=== PATIENT | female | born 1980 | race Caucasian/White ===

== ENCOUNTER 2017-07-23 15:29 | Emergency (ER) | payer SELFPAY ==
[2017-07-23 16:29] LABS: URINE HCG POC HCG NEGATIVE (Negative)
[2017-07-23 16:51] LABS: ADD MAN DIFF? NO
[2017-07-23 17:00] LABS: BASO # 0.1 x10^3/uL (0.0-0.2); BASO % 1 % (0-3); EOS # 0.3 x10^3/uL (0.0-0.7); EOS % 3 % (0-3); HEMATOCRIT 43.4 % (36.0-47.0); HEMOGLOBIN 14.2 g/dL (12.0-15.5); LYMPH # 2.4 x10^3/uL (1.0-4.8); LYMPH % 25 % (24-48); MEAN CORPUSCULAR HEMOGLOBIN 30 pg (25-35); MEAN CORPUSCULAR HGB CONC 33 g/dL (31-37); MEAN CORPUSCULAR VOLUME 90 fL (79-100); MONO # 1.4 x10^3/uL (0.0-1.1); MONO % 14 % (0-9); NEUT # 5.6 x10^3uL (1.8-7.7); NEUT % 57 % (31-73); PLATELET COUNT 407 x10^3/uL (140-400); RED BLOOD COUNT 4.81 x10^6/uL (3.50-5.40); RED CELL DISTRIBUTION WIDTH 13.7 % (11.5-14.5); WHITE BLOOD COUNT 9.8 x10^3/uL (4.0-11.0)
[2017-07-23 17:09] LABS: ANION GAP 13 (6-14); BLOOD UREA NITROGEN 8 mg/dL (7-20); BUN/CREATININE RATIO 11 (6-20); CARBON DIOXIDE 26 mmol/L (21-32); CHLORIDE 100 mmol/L (98-107); CREATININE 0.7 mg/dL (0.6-1.0); GFR 94.7; GLUCOSE 94 mg/dL (70-99); POTASSIUM 3.6 mmol/L (3.5-5.1); SODIUM 139 mmol/L (136-145)
[2017-07-23] MEDS: ONDANSETRON PF 4 MG/2 ML VIAL. IV (17:10)
[2017-07-23 17:13] LABS: ALK PHOS 61 U/L (46-116); ALT (SGPT) 20 U/L (14-59); AST (SGOT) 19 U/L (15-37); LIPASE 59 U/L (73-393); TOTAL BILIRUBIN 0.3 mg/dL (0.2-1.0); TOTAL PROTEIN 8.2 g/dL (6.4-8.2)
[2017-07-23] MEDS: IV NORMAL SALINE 1000ML BAG 1,000 ML IV (17:14)
[2017-07-23] MEDS ORDERED: CONTRAST GIVEN MC (17:15)
[2017-07-23] MEDS: IOHEXOL 300 MG/ML 100ML VIAL. IV (17:15)
[2017-07-23] MEDS: FAMOTIDINE 20 MG/2 ML VIAL IVP (17:16)
[2017-07-23] MEDS: fentaNYL PF VIAL 100 MCG/2 ML VIAL IV (17:16)
[2017-07-23 17:18] LABS: BILIRUBIN,URINE NEGATIVE (NEG); CLARITY,URINE TURBID; COLOR,URINE YELLOW; GLUCOSE,URINE NEGATIVE (NEG); NITRITE,URINE NEGATIVE (NEG); PROTEIN,URINE 30 mg/dL (NEG-TRACE); UROBILINOGEN,URINE 0.2 mg/dL (0.2 mg/dL)
[2017-07-23 17:33] LABS: BACTERIA,URINE MODERATE /HPF (0-FEW); SQUAMOUS EPITHELIAL CELL,UR MANY /LPF
[2017-07-23] MEDS: HYDROcodone/APAP 5/325MG 1 TAB TABLET PO (20:12)
[2017-07-23] MEDS: metroNIDAZOLE 500 MG TABLET PO (20:13)
[2017-07-23] MEDS: SMZ/TMP 800/160MG TABLET. PO (20:13)
== END 2017-07-23 20:25 | disposition home or self-care (01) ==
LOC: ER 15:29
DX: K52.9 Noninfective gastroenteritis and colitis, unspecified (principal)
CPT/HCPCS: 36415; 74177; 80053; 81001; 81025; 83690; 85025; 87045; 87086; 87205; 96361; 96374; 96375; 99285-25; J2405; J3010; J7030; Q9967; S0028

== ENCOUNTER 2020-10-12 15:36 | Inpatient (IN) | payer OTHER ==
[~2020-10-12] VITALS: Ht 154.9 cm; Wt 66.0 kg
[~2020-10-12 15:36] MED LIST: CETI10TA74 PO; CIPR500T94 PO; HYDR-3164 PO; IBUP-1027 PO; L. R1CAP2 PO; METR500T PO; OXYC1TAB15 PO; SULF1TAB24 PO
[2020-10-12 16:31] LABS: BASO % 0 % (0-3); EOS % 0 % (0-3); LYMPH # 0.8 x10^3/uL (1.0-4.8); LYMPH % 10 % (24-48); MEAN CORPUSCULAR HEMOGLOBIN 31 pg (25-35); MEAN CORPUSCULAR HGB CONC 34 g/dL (31-37); MEAN CORPUSCULAR VOLUME 91 fL (79-100); MONO # 0.6 x10^3/uL (0.0-1.1); MONO % 8 % (0-9); NEUT # 6.2 x10^3/uL (1.8-7.7); NEUT % 81 % (31-73); PLATELET COUNT 236 x10^3/uL (140-400); RED BLOOD COUNT 4.49 x10^6/uL (3.50-5.40); RED CELL DISTRIBUTION WIDTH 13.8 % (11.5-14.5); WHITE BLOOD COUNT 7.7 x10^3/uL (4.0-11.0)
[2020-10-12 16:34] LABS: BILIRUBIN,URINE NEGATIVE (NEG); CLARITY,URINE CLEAR; COLOR,URINE YELLOW; NITRITE,URINE NEGATIVE (NEG); PROTEIN,URINE NEGATIVE (NEG-TRACE); UROBILINOGEN,URINE 0.2 mg/dL (0.2 mg/dL)
[2020-10-12 16:38] LABS: CALCIUM 8.2 mg/dL (8.5-10.1); CREATININE 0.8 mg/dL (0.6-1.0); GFR 79.9; POTASSIUM 3.4 mmol/L (3.5-5.1)
[2020-10-12 16:41] LABS: RBC,URINE >40 /HPF (0-2)
[2020-10-12 16:42] LABS: BACTERIA,URINE FEW /HPF (0-FEW)
[2020-10-12] MEDS ORDERED: ONDANSETRON PF 4 MG/2 ML VIAL. IV ONE (16:45)
[2020-10-12] MEDS ORDERED: fentaNYL PF VIAL 100 MCG/2 ML VIAL IV ONE ×2 (16:45→20:15)
[2020-10-12] MEDS ORDERED: FAMOTIDINE 20 MG/2 ML VIAL IVP ONE (16:45)
[2020-10-12] MEDS ORDERED: IV NORMAL SALINE 1000ML BAG 1,000 ML IV ONE (16:45)
[2020-10-12 16:48] LABS: ALBUMIN 4.2 g/dL (3.4-5.0); ALBUMIN/GLOBULIN RATIO 1.1 (1.0-1.7); TOTAL BILIRUBIN 0.3 mg/dL (0.2-1.0)
[2020-10-12] MEDS ORDERED: CONTRAST GIVEN. MC PRN (17:45)
[2020-10-12] MEDS ORDERED: IOHEXOL 300 MG/ML 100ML VIAL. IV ONE (18:00)
--- NOTE | 2020-10-12 18:26 | RAD ---
Examination: CT of the abdomen pelvis with IV contrast HISTORY: History of nausea and vomiting, diarrhea COMPARISON: 08/17/2019 TECHNIQUE: Axial CT images of the abdomen is performed with IV contrast: Coronary sagittal reformats are performed. Exposure: One or more of the following individualized dose reduction techniques were utilized for thi s examination: 1. Automated exposure control 2. Adjustment of the mA and/or kV according to patient size 3. Use of iterative reconstruction technique FINDINGS: Partially visualized focal groundglass consolidation or infiltrates identified in the right middle lo be and in the bibasilar lungs. No evidence of free air identified in the abdomen. The liver demonstrates a focal fat in the left lob e otherwise unremarkable. The spleen, adrenals grossly appears unremarkable. The gallbladder is mildl y distended. The stomach is mildly distended with visualized pancreas grossly appears unremarkable. T he small bowel is nondilated. Diffuse moderate thickened appearance of the wall of the colon througho ut with surrounding inflammatory fat stranding. The bilateral kidneys enhance symmetrically. Urinary bladder is mildly distended No evidence of lytic bony destructive lesion. IMPRESSION: 1. Diffuse moderate thickened appearance of the wall of the colon throughout with surrounding inflam matory fat stranding likely diffuse colitis. 2. Partially visualized focal groundglass consolidation or infiltrates identified in the right middl e lobe and in the bibasilar lungs could be multifocal pneumonia, atypical/viral/ covid pneumonia. Cor relate with lab values. Electronically signed by: Sriram Cooper MD (10/12/2020 6:24 PM) [id number]
--- NOTE | 2020-10-12 19:02 | ED.ADGEN ---
Past Medical History Past Medical History: Other Additional Past Medical Histor: COLITIS Past Surgical History: No Surgical History Smoking Status: Former Smoker Alcohol Use: Occasionally Drug Use: None General Adult EDM: Chief Complaint: NAUSEA/VOMITING/DIARRHEA HPI: HPI: Patient is a 40 year old female, accompanied by her sister, who presents emergency department with complaints of having diarrhea for the last 6 days. Patient reports that she has had at least 25 episodes of diarrhea in the last 24 hours. She denies any blood in her stools but states that her stool is bright green color. Patient also complains of nausea and vomiting. She states she has had 2 episodes of vomiting today. Patient reports that she has not been able to eat or drink anything in the last 4 days and she has not been able to sleep in the last 3 days. Patient states she also has noticed decreased sense of taste and smell. She denies any fever, cough, sore throat, chest pain, palpitations, dysuria, hematuria, increased urinary frequency, difficulty voiding, headache, numbness, tingling, or weakness. She denies any known exposure to anyone with COVID-19. Patient has not been immunized against Covid 19. She currently rates her pain a 9 out of 10 on the pain scale and states it is in her low back and lower abdomen it feels like a cramping sensation. She denies any alleviating factors the pain is worse with palpation and movement. Review of Systems: Review of Systems: Complete ROS is negative unless otherwise noted in HPI. Current Medications: Current Medications Medications (Trade) Dose Ordered Sig/[facility] Start Time Stop Time Status Last Admin Dose Admin Famotidine (Pepcid Vial) 20 mg 1X ONCE 10/12/20 16:45 10/12/20 16:46 DC 10/12/20 17:12 20 MG Fentanyl Citrate (Fentanyl 2ml Vial) 50 mcg 1X ONCE 10/12/20 16:45 10/12/20 16:46 DC 10/12/20 17:12 50 MCG Info (CONTRAST GIVEN -- Rx MONITORING) 1 each PRN DAILY PRN 10/12/20 17:45 10/14/20 17:44 Iohexol (Omnipaque 300 Mg/ml) 74 ml 1X ONCE 10/12/20 18:00 10/12/20 18:01 DC 10/12/20 17:52 74 ML Ondansetron HCl (Zofran) 4 mg 1X ONCE 10/12/20 16:45 10/12/20 16:46 DC 10/12/20 17:12 4 MG Sodium Chloride 1,000 ml @ 1,000 mls/hr 1X ONCE 10/12/20 16:45 10/12/20 17:44 DC 10/12/20 17:11 1,000 MLS/HR Allergies: Allergies: Allergies Coded Allergies Type Severity Reaction Last Updated Verified No Known Drug Allergies 10/12/20 No Physical Exam: PE: See Above Constitutional: Well developed, well nourished, no acute distress, ill appearance. [] HENT: Normocephalic, atraumatic, bilateral external ears normal, nose normal, dry mucous membrane. [] Eyes: PERRLA, EOMI, conjunctiva normal, no discharge. [] Neck: Normal range of motion, no stridor. [] Cardiovascular:Heart rate regular rhythm Lungs & Thorax: Respirations even and unlabored, no retractions, no respiratory distress, lungs CTA Abdomen: soft, diffuse tenderness to palpation, no rebound tenderness, no guarding, no palpable mass Skin: Warm, dry, no erythema, no rash. [] Extremities: No cyanosis, ROM intact, no edema. [] Neurologic: Alert and oriented X 3, normal motor, normal sensory, no focal deficits noted. [] Psychologic: Affect normal, judgement normal, mood normal. [] Current Patient Data: Labs: Laboratory Tests Test 10/12/20 15:52 10/12/20 16:20 POC Urine HCG, Qualitative Hcg negative (Negative) White Blood Count 7.7 x10^3/uL (4.0-11.0) Red Blood Count 4.49 x10^6/uL (3.50-5.40) Hemoglobin 14.0 g/dL (12.0-15.5) Hematocrit 41.0 % (36.0-47.0) Mean Corpuscular Volume 91 fL (79-100) Mean Corpuscular Hemoglobin 31 pg (25-35) Mean Corpuscular Hemoglobin Concent 34 g/dL (31-37) Red Cell Distribution Width 13.8 % (11.5-14.5) Platelet Count 236 x10^3/uL (140-400) Neutrophils (%) (Auto) 81 % (31-73) H Lymphocytes (%) (Auto) 10 % (24-48) L Monocytes (%) (Auto) 8 % (0-9) Eosinophils (%) (Auto) 0 % (0-3) Basophils (%) (Auto) 0 % (0-3) Neutrophils # (Auto) 6.2 x10^3/uL (1.8-7.7) Lymphocytes # (Auto) 0.8 x10^3/uL (1.0-4.8) L Monocytes # (Auto) 0.6 x10^3/uL (0.0-1.1) Eosinophils # (Auto) 0.0 x10^3/uL (0.0-0.7) Basophils # (Auto) 0.0 x10^3/uL (0.0-0.2) Urine Collection Type Void Urine Color Yellow Urine Clarity Clear Urine pH 6.0 (<5.0-8.0) Urine Specific [place] 1.025 (1.000-1.030) Urine Protein Negative mg/dL (NEG-TRACE) Urine Glucose (UA) Negative mg/dL (NEG) Urine Ketones (Stick) >=80 mg/dL (NEG) Urine Blood Large (NEG) Urine Nitrite Negative (NEG) Urine Bilirubin Negative (NEG) Urine Urobilinogen Dipstick 0.2 mg/dL (0.2 mg/dL) Urine Leukocyte Esterase Trace (NEG) Urine RBC >40 /HPF (0-2) Urine WBC 1-4 /HPF (0-4) Urine Squamous Epithelial Cells Mod /LPF Urine Bacteria Few /HPF (0-FEW) Urine Mucus Slight /LPF Sodium Level 138 mmol/L (136-145) Potassium Level 3.4 mmol/L (3.5-5.1) L Chloride Level 101 mmol/L (98-107) Carbon Dioxide Level 19 mmol/L (21-32) L Anion Gap 18 (6-14) H Blood Urea Nitrogen 7 mg/dL (7-20) Creatinine 0.8 mg/dL (0.6-1.0) Estimated GFR (Cockcroft-Gault) 79.9 BUN/Creatinine Ratio 9 (6-20) Glucose Level 81 mg/dL (70-99) Calcium Level 8.2 mg/dL (8.5-10.1) L Magnesium Level 2.0 mg/dL (1.8-2.4) Total Bilirubin 0.3 mg/dL (0.2-1.0) Aspartate Amino Transferase (AST) 64 U/L (15-37) H Alanine Aminotransferase (ALT) 55 U/L (14-59) Alkaline Phosphatase 57 U/L (46-116) Total Protein 8.0 g/dL (6.4-8.2) Albumin 4.2 g/dL (3.4-5.0) Albumin/Globulin Ratio 1.1 (1.0-1.7) Lipase 63 U/L (73-393) L Laboratory Tests 10/12/20 16:20 Laboratory Tests 10/12/20 16:20 Vital Signs: Vital Signs Date Time Temp Pulse Resp B/P (MAP) Pulse Ox O2 Delivery O2 Flow Rate FiO2 10/12/20 18:39 89 19 149/81 (103) 97 Room Air 10/12/20 15:42 98.9 98.9 EKG: EKG: [] Heart Score: C/O Chest Pain: No Risk Scores: Score 0 - 3: 2.5% MACE over next 6 weeks - Discharge Home Score 4 - 6: 20.3% MACE over next 6 weeks - Admit for Clinical Observation Score 7 - 10: 72.7% MACE over next 6 weeks - Early Invasive Strategies Radiology/Procedures: Radiology/Procedures: PROCEDURE: CT ABD PELV W/ IV CONTRST ONLY Examination: CT of the abdomen pelvis with IV contrast HISTORY: History of nausea and vomiting, diarrhea COMPARISON: 08/17/2019 TECHNIQUE: Axial CT images of the abdomen is performed with IV contrast: Coronary sagittal reformats are performed. Exposure: One or more of the following individualized dose reduction techniques were utilized for this examination: 1. Automated exposure control 2. Adjustment of the mA and/or kV according to patient size 3. Use of iterative reconstruction technique FINDINGS: Partially visualized focal groundglass consolidation or infiltrates identified in the right middle lobe and in the bibasilar lungs. No evidence of free air identified in the abdomen. The liver demonstrates a focal fat in the left lobe otherwise unremarkable. The spleen, adrenals grossly appears unremarkable. The gallbladder is mildly distended. The stomach is mildly distended with visualized pancreas grossly appears unremarkable. The small bowel is nondilated. Diffuse moderate thickened appearance of the wall of the colon throughout with surrounding inflammatory fat stranding. The bilateral kidneys enhance symmetrically. Urinary bladder is mildly distended No evidence of lytic bony destructive lesion. IMPRESSION: 1. Diffuse moderate thickened appearance of the wall of the colon throughout with surrounding inflammatory fat stranding likely diffuse colitis. 2. Partially visualized focal groundglass consolidation or infiltrates identified in the right middle lobe and in the bibasilar lungs could be multifocal pneumonia, atypical/viral/ covid pneumonia. Correlate with lab values. Electronically signed by: Sriram Cooper MD (10/12/2020 6:24 PM) [id number][] Course & Med Decision Making: Course & Med Decision Making Pertinent Labs and Imaging studies reviewed. (See chart for details) 0-spoke with Dr. Lora who is the admitting physician, and care was assumed foll owing discussion of patient. Will admit patient for PUI, colitis, dehydration, pneumonia, and nausea/vomiting/diarrhea Patient's vital signs stable. Patient remains afebrile, appears nontoxic, respir ations even and unlabored. Patient will be admitted to the medical/surgical floor. Patient's case and plan of care also discussed with Dr. Light [] Kelsey Disclaimer: Kelsey Disclaimer: This electronic medical record was generated, in whole or in part, using a voice recognition dictation system. Departure Departure Impression: Primary Impression: Person under investigation for COVID-19 Additional Impressions: Pneumonia Colitis Dehydration Nausea, vomiting, and diarrhea Disposition: ADMITTED INPATIENT Admitting Physician: REMEDIOS (NORMAN) Condition: STABLE Referrals: NO PCP (PCP) COVID-19 Assessment: COVID-19 Patient Risks: Age 65 or older: No Sign of co-morbidity: No Exp to person + for COVID: No Exp to PUI: No Travel from affected area: No Lower respiratory symptoms: No Fever: No Other: Yes (N/V/D, DECREASED TASTE/SMELL) PPE Use: Full PPE with N95 mask or PAPR: Yes Problem Qualifiers Additional Impressions: Pneumonia Pneumonia type: due to unspecified organism Laterality: bilateral Lung location: unspecified part of lung Qualified Codes: J18.9 - Pneumonia, unspecified organism SADIE CONNER SURFACER Oct 12, 2020 19:02
--- NOTE | 2020-10-12 19:42 | PDOC1 ---
History and Physical Date of Service: DOS: DATE: 10/12/20 TIME: 19:27 Chief Complaint: Chief Complain: Nausea vomiting History of Present Illness: HPI: 40-year-old female with past medical history of colitis admitted in [address] Mcmahan her GI service. At that time she was dismissed with Flagyl and improved with symptoms. She comes today due to worsening diarrhea and nausea vomiting. She started out with diarrhea 3 days ago and then a day later she had a intractable nausea vomiting. Today she has had about 20 episodes of volume is green watery diarrhea. She also has have diffuse abdominal pain. She only has nausea and has vomited only twice. Denies any hematemesis or coffee- ground emesis. She denies any recent antibiotic use or travel or exotic culinary experiences. Of note, patient states that 1 year ago she did follow with Dr. Garrett as outpatient and a colonoscopy was done which only showed colitis. She is unsure if a biopsy was done or if there was any pathology report. Past Medical/Surgical History: PMH/PSH: Past Medical History: COLITIS Past Surgical History: No Surgical History Allergies: Allergies: Coded Allergies: No Known Drug Allergies (Unverified , 10/12/20) Family History: Family History: Reviewed with no relevant findings Social History: Social History: Smoking Status: Former Smoker Alcohol Use: Occasionally Drug Use: None Current Medications: Current Medications Current Medications Sodium Chloride 1,000 ml @ 1,000 mls/hr 1X ONCE IV Last administered on 10/12/20at 17:11; Start 10/12/20 at 16:45; Stop 10/12/20 at 17:44; Status DC Ondansetron HCl (Zofran) 4 mg 1X ONCE IV Last administered on 10/12/20at 17:12; Start 10/12/20 at 16:45; Stop 10/12/20 at 16:46; Status DC Famotidine (Pepcid Vial) 20 mg 1X ONCE IVP Last administered on 10/12/20at 17:12; Start 10/12/20 at 16:45; Stop 10/12/20 at 16:46; Status DC Fentanyl Citrate (Fentanyl 2ml Vial) 50 mcg 1X ONCE IV Last administered on 10/12/20at 17:12; Start 10/12/20 at 16:45; Stop 10/12/20 at 16:46; Status DC Iohexol (Omnipaque 300 Mg/ml) 74 ml 1X ONCE IV Last administered on 10/12/20at 17:52; Start 10/12/20 at 18:00; Stop 10/12/20 at 18:01; Status DC Info (CONTRAST GIVEN -- Rx MONITORING) 1 each PRN DAILY PRN MC SEE COMMENTS; Start 10/12/20 at 17:45; Stop 10/14/20 at 17:44 Sodium Chloride 1,000 ml @ 100 mls/hr Q10H IV ; Start 10/12/20 at 19:30; Stop 10/13/20 at 19:29 Active Scripts Active Percocet 5-325 Mg Tablet (Oxycodone/Acetaminophen) 1 Each Tablet 1 Tab PO QID PRN Flagyl (Metronidazole) 500 Mg Tablet 500 Mg PO TID Cipro (Ciprofloxacin Hcl) 500 Mg Tablet 1 Tab PO BID Reported Ibuprofen 400 Mg Tablet 400 Mg PO PRN Q6HRS PRN Zyrtec (Cetirizine Hcl) 10 Mg Tablet 1 Tab PO DAILY Culturelle Capsule (L. Rhamnosus GG/Inulin) 1 Each Cap.sprink 1 Each PO DAILY ROS: Review of Systems Review of System REVIEW OF SYSTEMS: GENERAL: Denies weakness SKIN: No bruising, hair changes or rashes. EYES: No blurred, double or loss of vision. NOSE AND THROAT: No history of nosebleeds, hoarseness or sore throat. HEART: No history of palpitations, chest pain or shortness of breath on exertion. LUNGS: Denies cough, hemoptysis, wheezing or shortness of breath. GASTROINTESTINAL: Denies changes in appetite, nausea, vomiting, diarrhea or constipation. GENITOURINARY: No history of frequency, urgency, hesitancy or nocturia. NEUROLOGIC: Denies history of numbness, tingling, or tremor. PSYCHIATRIC: No history of panic, anxiety or depression. ENDOCRINE: No history of heat or cold intolerance, polyuria or polydipsia. EXTREMITIES: Denies joint pain, pain on walking or stiffness. Physical Exam: Vital Signs: Vital Signs Date Time Temp Pulse Resp B/P (MAP) Pulse Ox O2 Delivery O2 Flow Rate FiO2 10/12/20 18:39 89 19 149/81 (103) 97 Room Air 10/12/20 15:42 98.9 98.9 Physcial Exam: GEN: No apparent distress. Alert and oriented HEENT: Normal cephalic, atraumatic, external auditory canals are patent EYES: Extraocular muscles are intact, pupil are equally round and reactive to light and accommodation MUSCULOSKELETAL: Well developed , well nourished, good range of motion ENDOCRINE: No thyromegaly was palpated LYMPHATICS: No cervical chain or axillary nodes were noted HEMATOPOIETIC: No bruising NECK: Supple, no JVD, no thyromegaly was noted LUNGS: Clear to auscultation in all lung park without rhonchi or wheezing HEART: RRR, S!, S2 present. Peripheral pulses intact, no obvious murmurs noted ABDOMEN: Soft, diffuse abdominal tenderness positive bowel sounds, no organomegaly, normal bowel sounds EXTREMITIES: Without clubbing, cyanosis, or edema. Pedal pulses intact. Negative Homans sign NEUROLOGIC: Normal speech and tone. A&O x 3, moves all extremities, no obvious focal deficits PSYCHIATRIC: Normal affect, normal mood. Stable SKIN: No ulcerations or rashes, good skin turgor, no jaundice VASCULAR: Good capillary refill, neurovascular bundle appears to be intact Labs: Labs: Laboratory Tests Test 10/12/20 15:52 10/12/20 16:20 Bedside Urine HCG, Qualitative Hcg negative (Negative) White Blood Count 7.7 x10^3/uL (4.0-11.0) Red Blood Count 4.49 x10^6/uL (3.50-5.40) Hemoglobin 14.0 g/dL (12.0-15.5) Hematocrit 41.0 % (36.0-47.0) Mean Corpuscular Volume 91 fL (79-100) Mean Corpuscular Hemoglobin 31 pg (25-35) Mean Corpuscular Hemoglobin Concent 34 g/dL (31-37) Red Cell Distribution Width 13.8 % (11.5-14.5) Platelet Count 236 x10^3/uL (140-400) Neutrophils (%) (Auto) 81 % (31-73) Lymphocytes (%) (Auto) 10 % (24-48) Monocytes (%) (Auto) 8 % (0-9) Eosinophils (%) (Auto) 0 % (0-3) Basophils (%) (Auto) 0 % (0-3) Neutrophils # (Auto) 6.2 x10^3/uL (1.8-7.7) Lymphocytes # (Auto) 0.8 x10^3/uL (1.0-4.8) Monocytes # (Auto) 0.6 x10^3/uL (0.0-1.1) Eosinophils # (Auto) 0.0 x10^3/uL (0.0-0.7) Basophils # (Auto) 0.0 x10^3/uL (0.0-0.2) Urine Collection Type Void Urine Color Yellow Urine Clarity Clear Urine pH 6.0 (<5.0-8.0) Urine Specific [place] 1.025 (1.000-1.030) Urine Protein Negative mg/dL (NEG-TRACE) Urine Glucose (UA) Negative mg/dL (NEG) Urine Ketones (Stick) >=80 mg/dL (NEG) Urine Blood Large (NEG) Urine Nitrite Negative (NEG) Urine Bilirubin Negative (NEG) Urine Urobilinogen Dipstick 0.2 mg/dL (0.2 mg/dL) Urine Leukocyte Esterase Trace (NEG) Urine RBC >40 /HPF (0-2) Urine WBC 1-4 /HPF (0-4) Urine Squamous Epithelial Cells Mod /LPF Urine Bacteria Few /HPF (0-FEW) Urine Mucus Slight /LPF Sodium Level 138 mmol/L (136-145) Potassium Level 3.4 mmol/L (3.5-5.1) Chloride Level 101 mmol/L (98-107) Carbon Dioxide Level 19 mmol/L (21-32) Anion Gap 18 (6-14) Blood Urea Nitrogen 7 mg/dL (7-20) Creatinine 0.8 mg/dL (0.6-1.0) Estimated GFR (Cockcroft-Gault) 79.9 BUN/Creatinine Ratio 9 (6-20) Glucose Level 81 mg/dL (70-99) Calcium Level 8.2 mg/dL (8.5-10.1) Magnesium Level 2.0 mg/dL (1.8-2.4) Total Bilirubin 0.3 mg/dL (0.2-1.0) Aspartate Amino Transf (AST/SGOT) 64 U/L (15-37) Alanine Aminotransferase (ALT/SGPT) 55 U/L (14-59) Alkaline Phosphatase 57 U/L (46-116) Total Protein 8.0 g/dL (6.4-8.2) Albumin 4.2 g/dL (3.4-5.0) Albumin/Globulin Ratio 1.1 (1.0-1.7) Lipase 63 U/L (73-393) Laboratory Tests Test 10/12/20 15:52 10/12/20 16:20 Bedside Urine HCG, Qualitative Hcg negative (Negative) White Blood Count 7.7 x10^3/uL (4.0-11.0) Red Blood Count 4.49 x10^6/uL (3.50-5.40) Hemoglobin 14.0 g/dL (12.0-15.5) Hematocrit 41.0 % (36.0-47.0) Mean Corpuscular Volume 91 fL (79-100) Mean Corpuscular Hemoglobin 31 pg (25-35) Mean Corpuscular Hemoglobin Concent 34 g/dL (31-37) Red Cell Distribution Width 13.8 % (11.5-14.5) Platelet Count 236 x10^3/uL (140-400) Neutrophils (%) (Auto) 81 % (31-73) Lymphocytes (%) (Auto) 10 % (24-48) Monocytes (%) (Auto) 8 % (0-9) Eosinophils (%) (Auto) 0 % (0-3) Basophils (%) (Auto) 0 % (0-3) Neutrophils # (Auto) 6.2 x10^3/uL (1.8-7.7) Lymphocytes # (Auto) 0.8 x10^3/uL (1.0-4.8) Monocytes # (Auto) 0.6 x10^3/uL (0.0-1.1) Eosinophils # (Auto) 0.0 x10^3/uL (0.0-0.7) Basophils # (Auto) 0.0 x10^3/uL (0.0-0.2) Urine Collection Type Void Urine Color Yellow Urine Clarity Clear Urine pH 6.0 (<5.0-8.0) Urine Specific [place] 1.025 (1.000-1.030) Urine Protein Negative mg/dL (NEG-TRACE) Urine Glucose (UA) Negative mg/dL (NEG) Urine Ketones (Stick) >=80 mg/dL (NEG) Urine Blood Large (NEG) Urine Nitrite Negative (NEG) Urine Bilirubin Negative (NEG) Urine Urobilinogen Dipstick 0.2 mg/dL (0.2 mg/dL) Urine Leukocyte Esterase Trace (NEG) Urine RBC >40 /HPF (0-2) Urine WBC 1-4 /HPF (0-4) Urine Squamous Epithelial Cells Mod /LPF Urine Bacteria Few /HPF (0-FEW) Urine Mucus Slight /LPF Sodium Level 138 mmol/L (136-145) Potassium Level 3.4 mmol/L (3.5-5.1) Chloride Level 101 mmol/L (98-107) Carbon Dioxide Level 19 mmol/L (21-32) Anion Gap 18 (6-14) Blood Urea Nitrogen 7 mg/dL (7-20) Creatinine 0.8 mg/dL (0.6-1.0) Estimated GFR (Cockcroft-Gault) 79.9 BUN/Creatinine Ratio 9 (6-20) Glucose Level 81 mg/dL (70-99) Calcium Level 8.2 mg/dL (8.5-10.1) Magnesium Level 2.0 mg/dL (1.8-2.4) Total Bilirubin 0.3 mg/dL (0.2-1.0) Aspartate Amino Transf (AST/SGOT) 64 U/L (15-37) Alanine Aminotransferase (ALT/SGPT) 55 U/L (14-59) Alkaline Phosphatase 57 U/L (46-116) Total Protein 8.0 g/dL (6.4-8.2) Albumin 4.2 g/dL (3.4-5.0) Albumin/Globulin Ratio 1.1 (1.0-1.7) Lipase 63 U/L (73-393) Images: Images CT ABD/PELVIS IMPRESSION: 1. Diffuse moderate thickened appearance of the wall of the colon throughout with surrounding inflammatory fat stranding likely diffuse colitis. 2. Partially visualized focal groundglass consolidation or infiltrates identified in the right middle lobe and in the bibasilar lungs could be multifocal pneumonia, atypical/viral/ covid pneumonia. Correlate with lab values. Assessment/Plan Assessment/Plan Intractable nausea vomiting Diffuse colitis, possible gram-negative organism, possible viral Investigation for COVID-19 infection Atypical pneumonia, possible viral Admit to medicine for further management Pending Covid test Pending chest x-ray Continue IV fluids Continue empiric IV antibiotics Pending stool studies Pending C. difficile studies Pending ESR Pending lactic acid GI consult IV MS antiemetics as needed We will try a trial of Bentyl Clear liquid diet and advance as tolerated We will try to avoid narcotics due to inflammation Lovenox for DVT prophylaxis Protonix GI prophylaxis ADA diet Full code Discussed with RN and SW Disposition patient management as above Surrogate decision maker is significant other Justifications for Admission Other Justification ANEGLIKA AUSTIN MD Oct 12, 2020 19:42
[2020-10-12] MEDS: IV NORMAL SALINE 1000ML BAG 1,000 ML IV SCH ×2 (19:54→21:00)
[2020-10-12] MEDS ORDERED: PROCHLORPERAZINE 10 MG/2 ML VIAL. IV ONE (20:15)
--- NOTE | 2020-10-12 20:45 | NUR ---
ADMISSION NOTE: Patient arrived to room 663. Bed low, locked, call light within reach. Patient requesting ice chips, NPO. Provided education. Patient verbalized understanding. No other complaints at this time. Green belongings bags present x2.
[2020-10-12] MEDS ORDERED: DOCUSATE SODIUM 100 MG CAPSULE. PO PRN (21:00)
[2020-10-12] MEDS ORDERED: SENNOSIDES 8.6 MG TABLET PO PRN (21:00)
[2020-10-12] MEDS ORDERED: DEXTROSE 50% 25 GM / 50ML DISP.SYRIN. IV PRN (21:00)
[2020-10-12] MEDS ORDERED: DICYCLOMINE 20 MG/2 ML VIAL. IM PRN (21:00)
[2020-10-12] MEDS: PIPERACILLIN/TAZOBACTAM 3.375 GM in IV NORMAL SALINE 50ML 50 ML IV SCH (21:48)
[2020-10-12] MEDS: ONDANSETRON PF 4 MG/2 ML VIAL. IVP PRN (22:22)
[2020-10-12 22:28] VITALS: BP 134/74
[2020-10-13 02:49] VITALS: BP 127/70
[2020-10-13] MEDS ORDERED: DIPH25TA24 PO (03:45)
[2020-10-13] MEDS: PIPERACILLIN/TAZOBACTAM 3.375 GM in IV NORMAL SALINE 50ML 50 ML IV SCH ×3 (06:23→18:15)
[2020-10-13] MEDS: IV NORMAL SALINE 1000ML BAG 1,000 ML IV SCH ×4 (06:24→18:14)
[2020-10-13] MEDS: DICYCLOMINE HCL 10 MG CAPSULE PO PRN ×2 (06:32→19:45)
[2020-10-13] MEDS: PROCHLORPERAZINE 10 MG/2 ML VIAL. IV PRN ×2 (06:32→15:39)
[2020-10-13 07:00] VITALS: BP 127/77
--- NOTE | 2020-10-13 07:26 | NUR ---
MD aware of consult, placing orders. Day shift RN notified.
--- NOTE | 2020-10-13 08:11 | RAD ---
EXAMINATION: Chest radiograph. VIEWS: Single AP view COMPARISON: 10/12/2020 INDICATION:40 years, Female, pneumonia. FINDINGS: Normal cardiomediastinal silhouette. Previously seen multifocal groundglass and consolidative opaciti es in bibasilar lungs are not appreciated on the current exam. No pleural effusion or pneumothorax. N o acute osseous process. IMPRESSION: Previously seen multifocal groundglass and consolidative opacities in bibasilar lungs are not appreci ated on the current exam. Electronically signed by: Sallie Chow MD (10/13/2020 8:09 AM) [id number]
[2020-10-13] MEDS: PANTOPRAZOLE 40 MG TABLET.DR. PO SCH (08:22)
[2020-10-13 08:59] LABS: BASO % 1 % (0-3); EOS % 1 % (0-3); HEMATOCRIT 37.2 % (36.0-47.0); HEMOGLOBIN 12.5 g/dL (12.0-15.5); LYMPH % 20 % (24-48); MEAN CORPUSCULAR HEMOGLOBIN 31 pg (25-35); MEAN CORPUSCULAR HGB CONC 34 g/dL (31-37); MEAN CORPUSCULAR VOLUME 91 fL (79-100); MONO # 0.7 x10^3/uL (0.0-1.1); MONO % 13 % (0-9); NEUT # 3.4 x10^3/uL (1.8-7.7); NEUT % 66 % (31-73); PLATELET COUNT 195 x10^3/uL (140-400); RED CELL DISTRIBUTION WIDTH 13.6 % (11.5-14.5); WHITE BLOOD COUNT 5.2 x10^3/uL (4.0-11.0)
[2020-10-13 09:14] LABS: CALCIUM 7.7 mg/dL (8.5-10.1); CREATININE 0.8 mg/dL (0.6-1.0); GFR 79.9; POTASSIUM 4.3 mmol/L (3.5-5.1)
--- NOTE | 2020-10-13 10:32 | NUR ---
SW following. Discussed with RN, pt from home with sister, room air, clear liquid diet, ambulatory, COVID-19 positive. GI following. RN advised no SW needs at this time. SW will continue to follow.
[2020-10-13 11:00] VITALS: BP 130/81
[2020-10-13] MEDS: ONDANSETRON PF 4 MG/2 ML VIAL. IVP PRN ×2 (11:31→19:46)
[2020-10-13] MEDS: HYDROcodone/APAP 5/325MG 1 TAB TABLET PO PRN ×3 (11:31→19:46)
--- NOTE | 2020-10-13 12:09 | PDOC ---
[employer] PROGRESS NOTE Date of Service DOS: DATE: 10/13/20 TIME: 12:07 Chief Complaint Chief Complaint COVID-19 positive (no pulmonary symptoms but she does have diarrhea) Intractable nausea vomiting Diffuse colitis, possible gram-negative organism, possible viral Investigation for COVID-19 infection Atypical pneumonia, possible viral History of Present Illness History of Present Illness 10/13/2020 Patient seen and examined Discussed with RN Discussed with case management I called GI nurse practitioner they are going to see the patient today Chart reviewed Patient complains of diarrhea Vitals/I&O Vitals/I&O: Vital Signs Date Time Temp Pulse Resp B/P (MAP) Pulse Ox O2 Delivery O2 Flow Rate FiO2 10/13/20 11:31 Room Air 10/13/20 11:00 98.7 86 18 130/81 (97) 97 98.7 I & O 10/12/20 10/12/20 10/13/20 15:00 23:00 07:00 Intake Total 1170 ml 1050 ml Balance 1170 ml 1050 ml Physical Exam General: Alert, Oriented X3 Heart: Regular rate Lungs: Wheezing Abdomen: Normal bowel sounds Extremities: No clubbing Skin: No rashes Labs Labs: Laboratory Tests Test 10/12/20 15:52 10/12/20 16:20 10/12/20 17:00 10/12/20 22:05 Bedside Urine HCG, Qualitative Hcg negative (Negative) White Blood Count 7.7 x10^3/uL (4.0-11.0) Red Blood Count 4.49 x10^6/uL (3.50-5.40) Hemoglobin 14.0 g/dL (12.0-15.5) Hematocrit 41.0 % (36.0-47.0) Mean Corpuscular Volume 91 fL (79-100) Mean Corpuscular Hemoglobin 31 pg (25-35) Mean Corpuscular Hemoglobin Concent 34 g/dL (31-37) Red Cell Distribution Width 13.8 % (11.5-14.5) Platelet Count 236 x10^3/uL (140-400) Neutrophils (%) (Auto) 81 % (31-73) Lymphocytes (%) (Auto) 10 % (24-48) Monocytes (%) (Auto) 8 % (0-9) Eosinophils (%) (Auto) 0 % (0-3) Basophils (%) (Auto) 0 % (0-3) Neutrophils # (Auto) 6.2 x10^3/uL (1.8-7.7) Lymphocytes # (Auto) 0.8 x10^3/uL (1.0-4.8) Monocytes # (Auto) 0.6 x10^3/uL (0.0-1.1) Eosinophils # (Auto) 0.0 x10^3/uL (0.0-0.7) Basophils # (Auto) 0.0 x10^3/uL (0.0-0.2) Urine Collection Type Void Urine Color Yellow Urine Clarity Clear Urine pH 6.0 (<5.0-8.0) Urine Specific [place] 1.025 (1.000-1.030) Urine Protein Negative mg/dL (NEG-TRACE) Urine Glucose (UA) Negative mg/dL (NEG) Urine Ketones (Stick) >=80 mg/dL (NEG) Urine Blood Large (NEG) Urine Nitrite Negative (NEG) Urine Bilirubin Negative (NEG) Urine Urobilinogen Dipstick 0.2 mg/dL (0.2 mg/dL) Urine Leukocyte Esterase Trace (NEG) Urine RBC >40 /HPF (0-2) Urine WBC 1-4 /HPF (0-4) Urine Squamous Epithelial Cells Mod /LPF Urine Bacteria Few /HPF (0-FEW) Urine Mucus Slight /LPF Sodium Level 138 mmol/L (136-145) Potassium Level 3.4 mmol/L (3.5-5.1) Chloride Level 101 mmol/L (98-107) Carbon Dioxide Level 19 mmol/L (21-32) Anion Gap 18 (6-14) Blood Urea Nitrogen 7 mg/dL (7-20) Creatinine 0.8 mg/dL (0.6-1.0) Estimated GFR (Cockcroft-Gault) 79.9 BUN/Creatinine Ratio 9 (6-20) Glucose Level 81 mg/dL (70-99) Calcium Level 8.2 mg/dL (8.5-10.1) Magnesium Level 2.0 mg/dL (1.8-2.4) Total Bilirubin 0.3 mg/dL (0.2-1.0) Aspartate Amino Transf (AST/SGOT) 64 U/L (15-37) Alanine Aminotransferase (ALT/SGPT) 55 U/L (14-59) Alkaline Phosphatase 57 U/L (46-116) Total Protein 8.0 g/dL (6.4-8.2) Albumin 4.2 g/dL (3.4-5.0) Albumin/Globulin Ratio 1.1 (1.0-1.7) Lipase 63 U/L (73-393) SARS-CoV-2 RNA (GWEN) Positive (Negative) Erythrocyte Sedimentation Rate 10 (0-25) Lactic Acid Level 0.7 mmol/L (0.4-2.0) Test 10/13/20 08:45 White Blood Count 5.2 x10^3/uL (4.0-11.0) Red Blood Count 4.10 x10^6/uL (3.50-5.40) Hemoglobin 12.5 g/dL (12.0-15.5) Hematocrit 37.2 % (36.0-47.0) Mean Corpuscular Volume 91 fL (79-100) Mean Corpuscular Hemoglobin 31 pg (25-35) Mean Corpuscular Hemoglobin Concent 34 g/dL (31-37) Red Cell Distribution Width 13.6 % (11.5-14.5) Platelet Count 195 x10^3/uL (140-400) Neutrophils (%) (Auto) 66 % (31-73) Lymphocytes (%) (Auto) 20 % (24-48) Monocytes (%) (Auto) 13 % (0-9) Eosinophils (%) (Auto) 1 % (0-3) Basophils (%) (Auto) 1 % (0-3) Neutrophils # (Auto) 3.4 x10^3/uL (1.8-7.7) Lymphocytes # (Auto) 1.0 x10^3/uL (1.0-4.8) Monocytes # (Auto) 0.7 x10^3/uL (0.0-1.1) Eosinophils # (Auto) 0.0 x10^3/uL (0.0-0.7) Basophils # (Auto) 0.0 x10^3/uL (0.0-0.2) Sodium Level 140 mmol/L (136-145) Potassium Level 4.3 mmol/L (3.5-5.1) Chloride Level 106 mmol/L (98-107) Carbon Dioxide Level 20 mmol/L (21-32) Anion Gap 14 (6-14) Blood Urea Nitrogen 5 mg/dL (7-20) Creatinine 0.8 mg/dL (0.6-1.0) Estimated GFR (Cockcroft-Gault) 79.9 Glucose Level 76 mg/dL (70-99) Calcium Level 7.7 mg/dL (8.5-10.1) Phosphorus Level 3.0 mg/dL (2.6-4.7) Magnesium Level 2.0 mg/dL (1.8-2.4) Assessment and Plan Assessmemt and Plan Problems Medical Problems: (1) Dehydration Status: Acute (2) Nausea, vomiting, and diarrhea Status: Acute (3) Person under investigation for COVID-19 Status: Acute (4) Pneumonia Status: Acut COVID-19 positive (no symptoms other than diarrhea) Intractable nausea vomiting Diffuse colitis, possible gram-negative organism, possible viral Investigation for COVID-19 infection Atypical pneumonia, possible viral Plan Await GI input Trend labs Home meds DVT prophylaxis Full code Empiric IV antibiotics IV fluids As needed Zofran Comment Review of Relevant I have reviewed the following items karen (where applicable) has been applied. Medications: Current Medications Medications (Trade) Dose Ordered Sig/Mor Route PRN Reason Start Time Stop Time Status Last Admin Dose Admin Sodium Chloride 1,000 ml @ 1,000 mls/hr 1X ONCE IV 10/12/20 16:45 10/12/20 17:44 DC 10/12/20 17:11 Ondansetron HCl (Zofran) 4 mg 1X ONCE IV 10/12/20 16:45 10/12/20 16:46 DC 10/12/20 17:12 Famotidine (Pepcid Vial) 20 mg 1X ONCE IVP 10/12/20 16:45 10/12/20 16:46 DC 10/12/20 17:12 Fentanyl Citrate (Fentanyl 2ml Vial) 50 mcg 1X ONCE IV 10/12/20 16:45 10/12/20 16:46 DC 10/12/20 17:12 Iohexol (Omnipaque 300 Mg/ml) 74 ml 1X ONCE IV 10/12/20 18:00 10/12/20 18:01 DC 10/12/20 17:52 Sodium Chloride 1,000 ml @ 100 mls/hr Q10H IV 10/12/20 19:30 10/13/20 19:29 10/13/20 06:24 Prochlorperazine Edisylate (Compazine) 10 mg 1X ONCE IV 10/12/20 20:15 10/12/20 20:17 DC 10/12/20 20:24 Fentanyl Citrate (Fentanyl 2ml Vial) 50 mcg 1X ONCE IV 10/12/20 20:15 10/12/20 20:17 DC 10/12/20 20:24 Prochlorperazine Edisylate (Compazine) 10 mg PRN Q6HRS PRN IV NAUSEA/VOMITING, 2ND CHOICE 10/12/20 21:00 10/13/20 06:32 Ondansetron HCl (Zofran) 4 mg PRN Q6HRS PRN IVP NAUSEA/VOMITING, 1ST CHOICE 10/12/20 21:00 10/13/20 11:31 Piperacillin Sod/ Tazobactam Sod 3.375 gm/Sodium Chloride 50 ml @ 100 mls/hr Q6HRS IV 10/12/20 22:00 10/13/20 11:31 Pantoprazole Sodium (Protonix) 40 mg DAILYAC PO 10/13/20 07:30 10/13/20 08:22 Dicyclomine HCl (Bentyl) 10 mg PRN QID PRN PO ABDOMINAL CRAMPS 10/12/20 21:00 10/13/20 06:32 Acetaminophen/ Hydrocodone Bitart (Lortab 5/325) 1 tab PRN Q4HRS PRN PO PAIN 10/13/20 11:30 10/13/20 11:31 Justifications for Admission Other Justification Intractable nausea vomiting MARY HOGUE III DO Oct 13, 2020 12:09
--- NOTE | 2020-10-13 13:30 | PDOC2 ---
GI CONSULT Date of Service: DATE: 10/13/20 TIME: 13:24 Reason For Consult: colitis HPI: HPI: 40 y/o female admitted through ER. "Sorta" sick since Saturday when loose stools, then much worse on Saturday w/ watery rashid green diarrhea >20 times daily. Precipitated by stress. Vomited once about 2 days ago. No bleeding. Has pain starting in her back bilaterally above both hips wrapping around to front, spread diffusely around abdomen. Pain is worse when she strains to have a stool. Says she has lost 11-15 pounds since Saturday. Tolerating clear liquids now but afraid to advance diet due to diarrhea. Reports "minimal case of colitis" on colonoscopy last year @ [facility] performed by Dr. Garrett. Was prescribed suppository that was too expensive so she didn't fill Rx. Her symptoms then (similar to current symptoms) improved. She says her doctor said we could call him if we had questions. Occasional heartburn, takes Prilosec PRN. No dysphagia, constipation, hematemesis, hematochezia, or melena (though she says she's on her period so it's hard to say). No previous EGD. No GB, liver, pancreas, or PUD history. No NSAIDs. No recent travel, sick contacts, or atbx use. PMH: PMH: per HPI FH: Family History: No pertinent hx (denies IBD) Social History: Smoke: No ALCOHOL: occassional Drugs: None ROS: GEN: Denies fevers, chills, sweats HEENT: Denies blurred vision, sore throat CV: Denies chest pain RESP: Denies shortness of air, cough GI: Per HPI : Denies hematuria, dysuria ENDO: +weight loss NEURO: Denies confusion, dizziness MSK: Denies weakness, joint pain/swelling SKIN: Denies jaundice, pruritus Vitals: Vitals: Vital Signs Date Time Temp Pulse Resp B/P (MAP) Pulse Ox O2 Delivery O2 Flow Rate FiO2 10/13/20 11:31 Room Air 10/13/20 11:00 98.7 86 18 130/81 (97) 97 98.7 Labs: Labs: Laboratory Tests Test 10/12/20 15:52 10/12/20 16:20 10/12/20 17:00 10/12/20 22:05 Bedside Urine HCG, Qualitative Hcg negative (Negative) White Blood Count 7.7 x10^3/uL (4.0-11.0) Red Blood Count 4.49 x10^6/uL (3.50-5.40) Hemoglobin 14.0 g/dL (12.0-15.5) Hematocrit 41.0 % (36.0-47.0) Mean Corpuscular Volume 91 fL (79-100) Mean Corpuscular Hemoglobin 31 pg (25-35) Mean Corpuscular Hemoglobin Concent 34 g/dL (31-37) Red Cell Distribution Width 13.8 % (11.5-14.5) Platelet Count 236 x10^3/uL (140-400) Neutrophils (%) (Auto) 81 % (31-73) Lymphocytes (%) (Auto) 10 % (24-48) Monocytes (%) (Auto) 8 % (0-9) Eosinophils (%) (Auto) 0 % (0-3) Basophils (%) (Auto) 0 % (0-3) Neutrophils # (Auto) 6.2 x10^3/uL (1.8-7.7) Lymphocytes # (Auto) 0.8 x10^3/uL (1.0-4.8) Monocytes # (Auto) 0.6 x10^3/uL (0.0-1.1) Eosinophils # (Auto) 0.0 x10^3/uL (0.0-0.7) Basophils # (Auto) 0.0 x10^3/uL (0.0-0.2) Urine Collection Type Void Urine Color Yellow Urine Clarity Clear Urine pH 6.0 (<5.0-8.0) Urine Specific [place] 1.025 (1.000-1.030) Urine Protein Negative mg/dL (NEG-TRACE) Urine Glucose (UA) Negative mg/dL (NEG) Urine Ketones (Stick) >=80 mg/dL (NEG) Urine Blood Large (NEG) Urine Nitrite Negative (NEG) Urine Bilirubin Negative (NEG) Urine Urobilinogen Dipstick 0.2 mg/dL (0.2 mg/dL) Urine Leukocyte Esterase Trace (NEG) Urine RBC >40 /HPF (0-2) Urine WBC 1-4 /HPF (0-4) Urine Squamous Epithelial Cells Mod /LPF Urine Bacteria Few /HPF (0-FEW) Urine Mucus Slight /LPF Sodium Level 138 mmol/L (136-145) Potassium Level 3.4 mmol/L (3.5-5.1) Chloride Level 101 mmol/L (98-107) Carbon Dioxide Level 19 mmol/L (21-32) Anion Gap 18 (6-14) Blood Urea Nitrogen 7 mg/dL (7-20) Creatinine 0.8 mg/dL (0.6-1.0) Estimated GFR (Cockcroft-Gault) 79.9 BUN/Creatinine Ratio 9 (6-20) Glucose Level 81 mg/dL (70-99) Calcium Level 8.2 mg/dL (8.5-10.1) Magnesium Level 2.0 mg/dL (1.8-2.4) Total Bilirubin 0.3 mg/dL (0.2-1.0) Aspartate Amino Transf (AST/SGOT) 64 U/L (15-37) Alanine Aminotransferase (ALT/SGPT) 55 U/L (14-59) Alkaline Phosphatase 57 U/L (46-116) Total Protein 8.0 g/dL (6.4-8.2) Albumin 4.2 g/dL (3.4-5.0) Albumin/Globulin Ratio 1.1 (1.0-1.7) Lipase 63 U/L (73-393) SARS-CoV-2 RNA (GWEN) Positive (Negative) Erythrocyte Sedimentation Rate 10 (0-25) Lactic Acid Level 0.7 mmol/L (0.4-2.0) Test 10/13/20 08:45 White Blood Count 5.2 x10^3/uL (4.0-11.0) Red Blood Count 4.10 x10^6/uL (3.50-5.40) Hemoglobin 12.5 g/dL (12.0-15.5) Hematocrit 37.2 % (36.0-47.0) Mean Corpuscular Volume 91 fL (79-100) Mean Corpuscular Hemoglobin 31 pg (25-35) Mean Corpuscular Hemoglobin Concent 34 g/dL (31-37) Red Cell Distribution Width 13.6 % (11.5-14.5) Platelet Count 195 x10^3/uL (140-400) Neutrophils (%) (Auto) 66 % (31-73) Lymphocytes (%) (Auto) 20 % (24-48) Monocytes (%) (Auto) 13 % (0-9) Eosinophils (%) (Auto) 1 % (0-3) Basophils (%) (Auto) 1 % (0-3) Neutrophils # (Auto) 3.4 x10^3/uL (1.8-7.7) Lymphocytes # (Auto) 1.0 x10^3/uL (1.0-4.8) Monocytes # (Auto) 0.7 x10^3/uL (0.0-1.1) Eosinophils # (Auto) 0.0 x10^3/uL (0.0-0.7) Basophils # (Auto) 0.0 x10^3/uL (0.0-0.2) Sodium Level 140 mmol/L (136-145) Potassium Level 4.3 mmol/L (3.5-5.1) Chloride Level 106 mmol/L (98-107) Carbon Dioxide Level 20 mmol/L (21-32) Anion Gap 14 (6-14) Blood Urea Nitrogen 5 mg/dL (7-20) Creatinine 0.8 mg/dL (0.6-1.0) Estimated GFR (Cockcroft-Gault) 79.9 Glucose Level 76 mg/dL (70-99) Calcium Level 7.7 mg/dL (8.5-10.1) Phosphorus Level 3.0 mg/dL (2.6-4.7) Magnesium Level 2.0 mg/dL (1.8-2.4) FECAL WBC,GRAM STAIN Final WBCS OCCASIONAL Allergies: Coded Allergies: No Known Drug Allergies (Unverified , 10/12/20) Medications: Current Medications Medications (Trade) Dose Ordered Sig/Mor Route PRN Reason Start Time Stop Time Status Last Admin Dose Admin Sodium Chloride 1,000 ml @ 1,000 mls/hr 1X ONCE IV 10/12/20 16:45 10/12/20 17:44 DC 10/12/20 17:11 Ondansetron HCl (Zofran) 4 mg 1X ONCE IV 10/12/20 16:45 10/12/20 16:46 DC 10/12/20 17:12 Famotidine (Pepcid Vial) 20 mg 1X ONCE IVP 10/12/20 16:45 10/12/20 16:46 DC 10/12/20 17:12 Fentanyl Citrate (Fentanyl 2ml Vial) 50 mcg 1X ONCE IV 10/12/20 16:45 10/12/20 16:46 DC 10/12/20 17:12 Iohexol (Omnipaque 300 Mg/ml) 74 ml 1X ONCE IV 10/12/20 18:00 10/12/20 18:01 DC 10/12/20 17:52 Sodium Chloride 1,000 ml @ 100 mls/hr Q10H IV 10/12/20 19:30 10/13/20 19:29 10/13/20 06:24 Prochlorperazine Edisylate (Compazine) 10 mg 1X ONCE IV 10/12/20 20:15 10/12/20 20:17 DC 10/12/20 20:24 Fentanyl Citrate (Fentanyl 2ml Vial) 50 mcg 1X ONCE IV 10/12/20 20:15 10/12/20 20:17 DC 10/12/20 20:24 Prochlorperazine Edisylate (Compazine) 10 mg PRN Q6HRS PRN IV NAUSEA/VOMITING, 2ND CHOICE 10/12/20 21:00 10/13/20 06:32 Ondansetron HCl (Zofran) 4 mg PRN Q6HRS PRN IVP NAUSEA/VOMITING, 1ST CHOICE 10/12/20 21:00 10/13/20 11:31 Piperacillin Sod/ Tazobactam Sod 3.375 gm/Sodium Chloride 50 ml @ 100 mls/hr Q6HRS IV 10/12/20 22:00 10/13/20 11:31 Pantoprazole Sodium (Protonix) 40 mg DAILYAC PO 10/13/20 07:30 10/13/20 08:22 Dicyclomine HCl (Bentyl) 10 mg PRN QID PRN PO ABDOMINAL CRAMPS 10/12/20 21:00 10/13/20 06:32 Acetaminophen/ Hydrocodone Bitart (Lortab 5/325) 1 tab PRN Q4HRS PRN PO PAIN 10/13/20 11:30 10/13/20 11:31 Imaging: Imaging: CT A/P IMPRESSION: 1. Diffuse moderate thickened appearance of the wall of the colon throughout with surrounding inflammatory fat stranding likely diffuse colitis. 2. Partially visualized focal groundglass consolidation or infiltrates identified in the right middle lobe and in the bibasilar lungs could be multifocal pneumonia, atypical/viral/ covid pneumonia. Correlate with lab values. CXR IMPRESSION: Previously seen multifocal groundglass and consolidative opacities in bibasilar lungs are not appreciated on the current exam. PE: GEN: NAD HEENT: Atraumatic, PERRL LUNGS: CTAB HEART: RRR ABD: quiet BS, soft, diffusely tender to light palpation EXTREMITY: No edema SKIN: No rashes, no jaundice NEURO/PSYCH: A & O 3 A/P: A/P: Diarrhea, abd pain - +COVID - pneumonia and colitis on CT, on IV atbx Occasional heartburn H/o "colitis" - was prescribed suppository (?mesalamine) CRC screen - reports colonoscopy last year @ [facility] -- Lactoferrin and enteric panel pending. Continue support. Will attempt to review past colonoscopy. ANA MARIA GARCIA Oct 13, 2020 13:30
[2020-10-13 15:00] VITALS: BP 132/74
[2020-10-13] MEDS: LACTOBACILLUS RHAMNOSUS GG 1 CAPSULE. PO SCH (19:46)
[2020-10-13 19:56] VITALS: BP 108/68
[2020-10-13 23:50] VITALS: BP 119/75
[2020-10-14] MEDS: PIPERACILLIN/TAZOBACTAM 3.375 GM in IV NORMAL SALINE 50ML 50 ML IV SCH ×5 (00:22→23:09)
[2020-10-14] MEDS: PROCHLORPERAZINE 10 MG/2 ML VIAL. IV PRN ×2 (00:27→23:09)
[2020-10-14] MEDS: HYDROcodone/APAP 5/325MG 1 TAB TABLET PO PRN ×3 (00:28→19:38)
[2020-10-14 03:48] VITALS: BP_SYST 114
[2020-10-14] MEDS: IV NORMAL SALINE 1000ML BAG 1,000 ML IV SCH ×3 (05:27→23:00)
[2020-10-14 07:00] VITALS: BP 120/78
[2020-10-14] MEDS: ONDANSETRON PF 4 MG/2 ML VIAL. IVP PRN ×2 (09:22→19:43)
[2020-10-14] MEDS: LACTOBACILLUS RHAMNOSUS GG 1 CAPSULE. PO SCH ×2 (09:22→21:28)
[2020-10-14] MEDS: PANTOPRAZOLE 40 MG TABLET.DR. PO SCH (09:22)
[2020-10-14] MEDS: LOPERAMIDE 2 MG/15 ML ORAL SUSP. PEG PRN ×2 (10:33→13:56)
--- NOTE | 2020-10-14 10:38 | NUR ---
SW following. Discussed with RN, pt from home with sister, room air, clear liquid diet, COVID-19 positive. Pt has had 5 loose stools this morning. RN advised no SW needs at this time. SW will continue to follow.
[2020-10-14 11:00] VITALS: BP 133/86
--- NOTE | 2020-10-14 11:21 | PDOC ---
[employer] PROGRESS NOTE Date of Service DOS: DATE: 10/14/20 TIME: 11:19 Chief Complaint Chief Complaint COVID-19 positive (no pulmonary symptoms but she does have diarrhea) Intractable nausea vomiting Diffuse colitis, possible gram-negative organism, possible viral Investigation for COVID-19 infection Atypical pneumonia, possible viral History of Present Illness History of Present Illness 10/14/2020 Patient seen and examined She had 5 loose stools this morning Discussed with RN asked her to go ahead and start the Imodium Discussed with GI nurse practitioner and she agrees with the Imodium Discussed with case management Chart reviewed 10/13/2020 Patient seen and examined Discussed with RN Discussed with case management I called GI nurse practitioner they are going to see the patient today Chart reviewed Patient complains of diarrhea Vitals/I&O Vitals/I&O: Vital Signs Date Time Temp Pulse Resp B/P (MAP) Pulse Ox O2 Delivery O2 Flow Rate FiO2 10/14/20 10:34 Room Air 10/14/20 07:00 98.2 90 18 120/78 (92) 95 98.2 I & O 10/13/20 10/13/20 10/14/20 15:00 23:00 07:00 Intake Total 1340 ml Balance 1340 ml Physical Exam General: Alert, Oriented X3 Heart: Regular rate Lungs: Wheezing Abdomen: Normal bowel sounds Extremities: No clubbing Skin: No rashes Assessment and Plan Assessmemt and Plan Problems Medical Problems: (1) Dehydration Status: Acute (2) Nausea, vomiting, and diarrhea Status: Acute (3) Person under investigation for COVID-19 Status: Acute (4) Pneumonia Status: Acute COVID-19 positive (no symptoms other than diarrhea) Intractable nausea vomiting Diffuse colitis, possible gram-negative organism, possible viral Atypical pneumonia, possible viral Plan We will start Imodium (if this does not help we will have to try tincture of opium) Await GI input Trend labs Home meds DVT prophylaxis Full code Empiric IV antibiotics IV fluids As needed Zofran Comment Review of Relevant I have reviewed the following items karen (where applicable) has been applied. Medications: Current Medications Medications (Trade) Dose Ordered Sig/Mor Route PRN Reason Start Time Stop Time Status Last Admin Dose Admin Acetaminophen/ Hydrocodone Bitart (Lortab 5/325) 1 tab PRN Q4HRS PRN PO PAIN 10/13/20 11:30 10/14/20 09:27 Lactobacillus Rhamnosus (Culturelle) 1 cap BID PO 10/13/20 21:00 10/14/20 09:22 Loperamide HCl (Immodium Oral Susp) 2 mg PRN Q30MIN PRN PEG DIARRHEA 10/14/20 09:30 10/14/20 10:33 Justifications for Admission Other Justification Intractable nausea vomiting MARY HOGUE III DO Oct 14, 2020 11:21
--- NOTE | 2020-10-14 11:44 | PDOC ---
Date of Service: DATE: 10/14/20 TIME: 11:41 Objective: Objective: EGD and colonoscopy 11/2019: Grade A reflux and small hiatal hernia on EGD. Biopsies of antrum and duodenum w/o specific abnormalities and no H.pylori. Colonoscopy to TI grossly normal save focal erythema/granularity confined to sigmoid and hemorrhoids. Sigmoid biopsies with "focal colitis" changes (non- specific) and normal random colon biopsies otherwise. Vital Signs: Vital Signs Date Time Temp Pulse Resp B/P (MAP) Pulse Ox O2 Delivery O2 Flow Rate FiO2 10/14/20 10:34 Room Air 10/14/20 07:00 98.2 90 18 120/78 (92) 95 98.2 PE: in shower A/P: Diarrhea, COVID infection -- In shower when I stopped by. Called by Dr. Timmons earlier - 5 stools this morning, started Imodium. Supportive care from GI standpoint, okay to ADAT. Justicifation of Admission Dx: Justifications for Admission: Justification of Admission Dx: Yes ANA MARIA GARCIA Oct 14, 2020 11:44
[2020-10-14 15:00] VITALS: BP 134/84
[2020-10-14 19:32] VITALS: BP 141/90
[2020-10-14] MEDS: ACETAMINOPHEN 325 MG TABLET. PO PRN (19:43)
[2020-10-14] MEDS: oxyCODONE IR 5 MG TABLET PO PRN (22:20)
[2020-10-14 22:33] VITALS: BP 124/86
[2020-10-15 03:58] VITALS: BP 116/75
[2020-10-15] MEDS: PIPERACILLIN/TAZOBACTAM 3.375 GM in IV NORMAL SALINE 50ML 50 ML IV SCH (05:45)
[2020-10-15] MEDS: ACETAMINOPHEN 325 MG TABLET. PO PRN (05:49)
[2020-10-15] MEDS: oxyCODONE IR 5 MG TABLET PO PRN (05:49)
[2020-10-15] MEDS: IV NORMAL SALINE 1000ML BAG 1,000 ML IV SCH (06:34)
[2020-10-15 07:00] VITALS: BP 109/64
[2020-10-15] MEDS ORDERED: VITS A & D/LANOLIN TOPICAL OINTMENT 42GM TUBE. TP PRN (07:30)
[2020-10-15] MEDS: LACTOBACILLUS RHAMNOSUS GG 1 CAPSULE. PO SCH (08:26)
[2020-10-15] MEDS: HYDROcodone/APAP 5/325MG 1 TAB TABLET PO PRN (08:26)
[2020-10-15] MEDS: LOPERAMIDE 2 MG/15 ML ORAL SUSP. PEG PRN (08:26)
[2020-10-15] MEDS: PANTOPRAZOLE 40 MG TABLET.DR. PO SCH (08:26)
[2020-10-15] MEDS ORDERED: PANT40TA77 PO (10:07)
--- NOTE | 2020-10-15 10:46 | DS ---
DATE OF DISCHARGE: 10/15/2020 ADMITTING DIAGNOSES: 1. COVID-19. 2. Diarrhea. DISCHARGE DIAGNOSES: Resolving diarrhea, resolving COVID-19, history of gastroesophageal reflux disease, allergic rhinitis. CONSULTS: GI. PROCEDURES: None. HOSPITAL COURSE: The patient is a pleasant, middle-aged female who presented with COVID-19 diarrhea. She really did not have any pulmonary symptoms, it is mainly diarrhea. We admitted the patient. We gave her Imodium and consulted GI. We did stool studies. They were negative. Today, I saw and examined the patient, she is doing well. We plan to discharge her home. DISPOSITION: Home. ACTIVITY: As tolerated. DIET: Low sodium. DISCHARGE MEDICATIONS: Please see MAR. Protonix 40 a day, [id number] Imodium, Zyrtec 10 a day and p.r.n. Benadryl. Total time is [address]: Brady TID: [id number]
[2020-10-15 11:14] VITALS: BP 106/62
--- NOTE | 2020-10-15 12:30 | NUR ---
Patient education given, prescriptions given to patient, IV discontinued by Tanya ROCHA. Pt educated on quarantine. Escorted out by wheelchair to main entrance to personal vehicle.
== END 2020-10-15 12:30 | disposition home or self-care (01) | DRG 177 ==
LOC: ER 15:36 → 6 SOUTH 19:00
PROVIDERS: ADMIT Internal Medicine; ATTEND Internal Medicine
DX: U07.1 COVID-19 (principal); J12.82 Pneumonia due to coronavirus disease 2019; K52.9 Noninfective gastroenteritis and colitis, unspecified; K21.9 Gastro-esophageal reflux disease without esophagitis; J30.9 Allergic rhinitis, unspecified; E86.0 Dehydration; K44.9 Diaphragmatic hernia without obstruction or gangrene; K64.9 Unspecified hemorrhoids; Z78.9 Other specified health status; Z87.891 Personal history of nicotine dependence
CPT/HCPCS: 36415; 71045; 74177; 80048; 80053; 81001; 81025; 83605; 83631; 83690; 83735; 84100; 85025; 85651; 87086; 87205; 87328; 87329; 87493; 87505; 96361; 96374; 96375; 96376; J0780; J2405; J2543; J3010; J3490; J7030; Q9967; U0003; U0005; 99285-25; G0378